=== PATIENT | male | born 1960 | race African-American/Black ===

== ENCOUNTER 2017-09-24 20:38 | Emergency (ER) | payer MEDICAID ==
[2017-09-24] MEDS ORDERED: NARCAN INJ IVP ONE (20:40)
[2017-09-24] MEDS ORDERED: NARCAN INJ ONE ×2 (20:40→20:48)
[2017-09-24] MEDS ORDERED: NS 1000 ML 1,000 ML IV ONE (21:11)
[2017-09-24] MEDS ORDERED: NARCAN INJ IM ONE (21:11)
[2017-09-24] MEDS ORDERED: ROMAZICON INJ 0.5 MG IVP ONE ×2 (21:12→21:40)
[2017-09-24 21:14] VITALS: BMI 36.9
--- NOTE | 2017-09-24 21:18 | DR.GENAD ---
HPI - HPI Comment HPI Comment: Patient presented to the ED via EMS secondary to an unknown injestion of drugs. He was drowsy but arousable at the scene. His live in friend of five years states that patient took some seroquel and became disoreiented. She states that he usually takes large quanities of medicine due to his mental disability of bipolar. He is a patient of [facility] and attends [facility]. Patient states that his primary care physician is Dr Mendoza. He denies being suicidal or homocidal. Patient answers questions appropriately. - Complaint/Symptoms Chief Complaint Doctors Comments: Patient presented to the ED with complaint of possible ingestion. His significant other reported that he had snorted some coke with her. he is obtunded with difficult to arouse. He responds to tactile stimulation and somewhat to narcan and more to flumazenil. PMH - PMH Past Medical History: Depression ROS - Review of Systems Eyes: No Symptoms Reported ENTM: No Symptoms Reported Respiratoy: No Symptoms Reported Cardiovascular: No Symptoms Reported Gastrointestinal/Abdominal: No Symptoms Reported Genitourinary: No Symptoms Reported Neurological: No Symptoms Reported Musculoskeletal: No Symptoms Reported Integumentary: No Symptoms Reported Hematologic/Lymphatic: No Symptoms Reported Endocrine: No Symptoms Reported Psychiatric: See HPI All Other Systems: Reviewed and Negative PE - Vital Signs Vitals: Temperature 98.1 F Pulse Rate [Right] 62 Pulse Rate 56 Respiratory Rate 23 Blood Pressure [Left Arm] 141/78 Blood Pressure 161/99 O2 Sat by Pulse Oximetry 99 - General Limitations: No Limitations General Appearance: Alert, In No Apparent Distress - Head Head Exam: Normal Inspection - Eyes Eye exam: Normal Appearance, PERRL, EOMI - ENT ENT Exam: Normal Exam External Ear Exam: Normal External Inspection TM/Canal Exam: Bilateral Normal Nose Exam: Normal Nose Exam Mouth Exam: Normal Inspection Throat Exam: Normal Inspection - Neck Neck Exam: Normal Inspection - Chest Chest Inspection: Normal Inspection - Respiratory Respiratory Exam: Normal Lung Sounds Bilat Respiratory Exam: Bilateral Clear to Auscultation - Cardiovascular Cardiovascular Exam: Regular Rate, Normal Rhythm - Abdominal Exam Abdominal Exam: Normal Inspection Abdominal Tenderness: negative: RUQ, RLQ, LUQ, LLQ, Epigastrium, Suprapubic, Diffuse, Mild, Moderate, Severe, Other - Extremities Extremities Exam: Normal Inspection - Back Back Exam: Normal Inspection, Full ROM - Neurologic Neurological Exam: Alert, Oriented X3, CN II-XII Intact - Psychiatric Psychiatric Exam: Normal Affect, Normal Mood - Skin Skin Exam: Warm, Dry, Intact Course - Treatment Treatment: see orders - Reevaluation 1st: Improved - Education/Counseling Educated On: Treatment, Diagnosis, Needs for Follow Up ROR - Labs Reviewed Laboratory Results Reviewed?: Yes Result Diagrams: 09/24/17 20:58 09/25/17 02:43 Laboratory: WBC 5.2 X10^3/uL (3.6-10.0) 09/24/17 20:58 RBC 4.24 X10^6/uL (4.7-6.0) L 09/24/17 20:58 Hgb 11.9 g/dL (13.5-18.0) L 09/24/17 20:58 Hct 34.8 % (42.0-54.0) L 09/24/17 20:58 MCV 82.0 fL (80.0-100.0) 09/24/17 20:58 MCH 28.1 pg (27.0-34.0) 09/24/17 20:58 MCHC 34.2 g/dL (33.0-35.0) 09/24/17 20:58 RDW 13.6 % (11.6-16.5) 09/24/17 20:58 Plt Count 181 X10^3/uL (150.0-450.0) 09/24/17 20:58 MPV 8.4 fL (7.4-11.0) 09/24/17 20:58 Neut % 70.0 % (42.0-75.0) 09/24/17 20:58 Lymph % 21.8 % (21.0-51.0) 09/24/17 20:58 [place] % 5.7 % (0.0-13.0) 09/24/17 20:58 Eos % 2.1 % (0.9-2.9) 09/24/17 20:58 Baso % 0.4 % (0.2-1.0) 09/24/17 20:58 Neut # 3.6 x10^3/uL (2.2-4.8) 09/24/17 20:58 Lymph # 1.1 X10^3/uL (1.3-2.9) L 09/24/17 20:58 [place] # 0.3 x10^3/uL (0.3-0.8) 09/24/17 20:58 Eos # 0.1 x10^3/uL (0.0-0.2) 09/24/17 20:58 Baso # 0.0 X10^3/uL (0.0-0.1) 09/24/17 20:58 Absolute Nucleated RBC 0.0 /100WBC 09/24/17 20:58 Sodium 141 mmol/L (136-145) 09/25/17 02:43 Corrected Sodium TNP 09/25/17 02:43 Potassium 3.7 mmol/L (3.5-5.1) 09/25/17 02:43 Chloride 105 mmol/L (98-107) 09/25/17 02:43 Carbon Dioxide 30.0 mmol/L (21-32) 09/25/17 02:43 BUN 20 mg/dL (7-18) H 09/25/17 02:43 Creatinine 0.92 mg/dL (0.70-1.30) 09/25/17 02:43 Est GFR (MDRD) Af Amer > 60 (>60) 09/25/17 02:43 Est GFR (MDRD) Non-Af > 60 (>60) 09/25/17 02:43 Glucose 99 mg/dL (65-99) 09/25/17 02:43 Calcium 8.2 mg/dL (8.5-10.1) L 09/25/17 02:43 Corrected Calcium 9.4 mg/dL (8.5-10.1) 09/24/17 20:58 Total Bilirubin 0.20 mg/dL (0.2-1.0) 09/24/17 20:58 AST 22 Units/L (15-37) 09/24/17 20:58 ALT 26 Units/L (12-78) 09/24/17 20:58 Alkaline Phosphatase 67 Units/L (46-116) 09/24/17 20:58 Total Protein 6.8 g/dL (6.4-8.2) 09/24/17 20:58 Albumin 3.2 g/dL (3.4-5.0) L 09/24/17 20:58 Globulin 3.6 g/dL (2.5-4.5) 09/24/17 20:58 Albumin/Globulin Ratio 0.9 Ratio (1.1-2.1) L 09/24/17 20:58 Specimen Type Clean catch urine 09/24/17 21:00 Urine Color Pale yellow (YELLOW) 09/24/17 21:00 Urine Appearance Clear (CLEAR) 09/24/17 21:00 Urine pH 7.0 (5.0 - 8.0) 09/24/17 21:00 Ur Specific [place] 1.010 (1.000-1.030) 09/24/17 21:00 Urine Protein Negative (NEGATIVE) 09/24/17 21:00 Urine Glucose (UA) Negative (NEGATIVE) 09/24/17 21:00 Urine Ketones Negative (NEGATIVE) 09/24/17 21:00 Urine Occult Blood Trace (NEGATIVE) 09/24/17 21:00 Urine Nitrite Negative (NEGATIVE) 09/24/17 21:00 Urine Bilirubin Negative (NEGATIVE) 09/24/17 21:00 Urine Urobilinogen Normal (NORMAL) 09/24/17 21:00 Ur Leukocyte Esterase Negative (NEGATIVE) 09/24/17 21:00 Urine RBC 0-3 /HPF (NEGATIVE) 09/24/17 21:00 Urine WBC 0-3 /HPF (NEGATIVE) 09/24/17 21:00 Ur Squamous Epith Cells Rare /HPF (NEGATIVE) 09/24/17 21:00 Urine Bacteria Negative /HPF (NEGATIVE) 09/24/17 21:00 Ur Culture Indicated? No/not indicated 09/24/17 21:00 Urine Opiates Screen Negative (NEG=<300) 09/24/17 21:00 Urine Methadone Screen Negative (NEG=<300) 09/24/17 21:00 Ur Barbiturates Screen Negative (NEG=<200) 09/24/17 21:00 Ur Phencyclidine Scrn Negative (NEG=<25) 09/24/17 21:00 Ur Amphetamines Screen Negative (NEG=<1000) 09/24/17 21:00 U Benzodiazepines Scrn Negative (NEG=<200) 09/24/17 21:00 Urine Cocaine Screen Negative (NEG=<300) 09/24/17 21:00 U Marijuana (THC) Screen Positive (NEG=<50) A 09/24/17 21:00 - XRAY XRAY Interpreted by: Radiologist (Chest: No acute cardiopulmonary disorder) - Diagnosis Discharge Problem: Hypokalemia, suspected drug abuse - Discharge Plan Condition: Stable - Follow ups/Referrals Follow ups/Referrals: AMAN MENDOZA [Primary Care Provider] - 3 days - Instructions
[2017-09-24 21:21] LABS: BASOPHILS % (AUTO) 0.4 % (0.2-1.0); EOSINOPHILS # (AUTO) 0.1 x10^3/uL (0.0-0.2); EOSINOPHILS % (AUTO) 2.1 % (0.9-2.9); HEMATOCRIT 34.8 % (42.0-54.0); HEMOGLOBIN 11.9 g/dL (13.5-18.0); LYMPHOCYTES # (AUTO) 1.1 X10^3/uL (1.3-2.9); LYMPHOCYTES % (AUTO) 21.8 % (21.0-51.0); MEAN CORPUSCULAR HEMOGLOBIN 28.1 pg (27.0-34.0); MEAN CORPUSCULAR HGB CONC 34.2 g/dL (33.0-35.0); MEAN PLATELET VOLUME 8.4 fL (7.4-11.0); MONOCYTES # (AUTO) 0.3 x10^3/uL (0.3-0.8); MONOCYTES % (AUTO) 5.7 % (0.0-13.0); NEUTROPHILS # (AUTO) 3.6 x10^3/uL (2.2-4.8); PLATELET COUNT 181 X10^3/uL (150.0-450.0); RED BLOOD COUNT 4.24 X10^6/uL (4.7-6.0); RED CELL DISTRIBUTION WIDTH 13.6 % (11.6-16.5); WHITE BLOOD COUNT 5.2 X10^3/uL (3.6-10.0)
[2017-09-24] MEDS ORDERED: ROMAZICON INJ 0.5 MG ONE ×2 (21:21→21:59)
[2017-09-24 21:24] LABS: BLOOD UREA NITROGEN 25 mg/dL (7-18); CALCIUM 8.8 mg/dL (8.5-10.1); CARBON DIOXIDE 28.8 mmol/L (21-32); CHLORIDE 107 mmol/L (98-107); COR NA(FOR HYPERGLY) 144 mmol/L (136-145); CREATININE 1.06 mg/dL (0.70-1.30); SODIUM 143 mmol/L (136-145); eGFR BLACK RACES > 60 (>60); eGFR NON BLACK RACES > 60 (>60)
[2017-09-24 21:27] LABS: ALANINE AMINOTRANSFERASE 26 Units/L (12-78); ALBUMIN 3.2 g/dL (3.4-5.0); ALKALINE PHOSPHATASE 67 Units/L (46-116); ASPARTATE AMINO TRANSFERASE 22 Units/L (15-37); COR CA(FOR HYPOALB) 9.4 mg/dL (8.5-10.1); TOTAL PROTEIN 6.8 g/dL (6.4-8.2)
[2017-09-24] MEDS ORDERED: K-LYTE EFFERVESCENT ONE (21:55)
[2017-09-24] MEDS ORDERED: K-LYTE EFFERVESCENT PO ONE (22:00)
--- NOTE | 2017-09-24 22:02 | RAD ---
HISTORY: Ingestion of pills Study: Single view chest Comparison: None Findings: Single portable view is submitted. No infiltrate, effusion or pneumothorax identified. The cardiac an d mediastinal contours are within normal limits. The soft tissues are unremarkable. IMPRESSION: 1. No acute cardiopulmonary abnormality. Reported By:
[2017-09-24 22:15] LABS: APPEARANCE,URINE CLEAR (CLEAR); COLOR,URINE PALE YELLOW (YELLOW)
[2017-09-24 22:16] LABS: BACTERIA,URINE NEGATIVE /HPF (NEGATIVE); BILIRUBIN,URINE NEGATIVE (NEGATIVE); BLOOD/HEMOGLOBIN,URINE TRACE (NEGATIVE); GLUCOSE, URINE NEGATIVE (NEGATIVE); KETONES,URINE NEGATIVE (NEGATIVE); LEUKOCYTE ESTERASE ,URINE NEGATIVE (NEGATIVE); NITRITES,URINE NEGATIVE (NEGATIVE); PROTEIN,URINE NEGATIVE (NEGATIVE); RBC,URINE 0-3 /HPF (NEGATIVE); SQUAMOUS EPITHELIAL CELL,UR RARE /HPF (NEGATIVE); UROBILINOGEN,URINE NORMAL (NORMAL)
[2017-09-24] MEDS ORDERED: NS 1000 ML 1,000 ML ONE (23:13)
[2017-09-25 02:56] LABS: BLOOD UREA NITROGEN 20 mg/dL (7-18); CALCIUM 8.2 mg/dL (8.5-10.1); CHLORIDE 105 mmol/L (98-107); CREATININE 0.92 mg/dL (0.70-1.30); SODIUM 141 mmol/L (136-145); eGFR BLACK RACES > 60 (>60); eGFR NON BLACK RACES > 60 (>60)
[2017-09-25 06:13] VITALS: BP 138/74
== END 2017-09-25 06:13 | disposition home or self-care (01) ==
LOC: ER 20:38
DX: E87.6 Hypokalemia (principal)
CPT/HCPCS: 36415; 51702; 71010; 80048; 80053; 80307; 81001; 85025; 93005; 93010; 96365; 96367; 96374; 96375; 99283; 99284; A4222; G0434; J2310; J3490